=== PATIENT | female | born 1985 | race Caucasian/White ===

== ENCOUNTER 2017-10-23 19:45 | Emergency (ER) | payer BC, OTHER ==
[~2017-10-23] VITALS: Ht 167.6 cm; Wt 71.3 kg
[2017-10-23 19:49] VITALS: Ht 167.6 cm; Wt 71.3 kg
[2017-10-23] MEDS ORDERED: KETOROLAC 15 MG INJ IM STA (22:22)
--- NOTE | 2017-10-23 22:22 | ERD ---
ER Documentation Chief Complaint Chief Complaint back pain, dark colored urine HPI This 32 yr old female presents to ED for pelvic pain and dark colored urine, pt was seen and treated for chlamydia and vaginosis with 1000 mg of azithromycin and is taking Flagyl 500mg TID. pt reports constant generalized ABD pain described as squeezing . pain right upper quad to pelvic is the worse area. pt has appendicis pt has appointment Oct 28 or with [facility]. denies vaginal D/C. LMP 3 weeks ago. ROS All systems reviewed and are negative except as per history of present illness. Medications Home Meds Active Scripts Nitrofurantoin Monohyd Macrocr* (Macrobid*) 100 Mg Capsr, 100 MG PO BID for 7 Days, #14 CAP Prov:DHEERAJ,NORRIS 10/24/17 Ranitidine Hcl* (Zantac*) 150 Mg Tablet, 150 MG PO BID Y for EPIGASTRIC PAIN, # 30 TAB Prov:DHEERAJ,NORRIS 10/24/17 Discontinued Scripts Doxycycline Hyclate* (Doxycycline Hyclate*) 100 Mg Tablet.dr, 100 MG PO BID for 7 Days, TAB Prov:DHEERAJ,NORRIS 10/24/17 Allergies Allergies: Coded Allergies: No Known Allergy (Unverified , 10/23/17) PMhx/Soc Medical and Surgical Hx: pt denies Surgical Hx History of Surgery: No Anesthesia Reaction: No Hx Neurological Disorder: No Hx Respiratory Disorders: No Hx Cardiac Disorders: No Hx Psychiatric Problems: No 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 Abd: Soft, non tender, non distended. No CVA tenderness Skin: No petechiae or rashes Back: No midline or flank tenderness Ext: No cyanosis, or edema Neur: Awake and alert Psych: Normal Mood and Affect Results 24 hrs Laboratory Tests Test 11/30/17 22:30 Urine Color YELLOW Urine Clarity CLEAR Urine pH 5.0 Urine Specific [place] 1.024 Urine Ketones TRACEmg/dL Urine Nitrite NEGATIVEmg/dL Urine Bilirubin NEGATIVEmg/dL Urine Urobilinogen 1+mg/dL Urine Leukocyte Esterase TRACELeu/ul Urine Microscopic RBC 1/HPF Urine Microscopic WBC 1/HPF Urine Bacteria FEW/HPF Urine Mucus FEW/HPF Urine Hemoglobin 2+mg/dL Urine Glucose NEGATIVEmg/dL Urine Total Protein NEGATIVEmg/dl Current Medications Medications (Trade) Dose Ordered Sig/Carolyn Route PRN Reason Start Time Stop Time Status Last Admin Dose Admin Ranitidine HCl (Zantac) 150 mg ONCE ONCE PO 10/23/17 22:30 10/23/17 22:31 DC 10/23/17 22:49 Ketorolac Tromethamine (Toradol) 15 mg ONCE STAT IM 10/23/17 22:22 10/23/17 22:25 DC Procedures/MDM This 32-year-old female presents to emergency department for evaluation of pelvic pain and dark-colored urine, patient reports that she was treated by her primary care physician for chlamydia and vaginosis, she received 1000 mg of azithromycin one time dose and Flagyl 500 3 times daily which she currently is taking she reports abdominal pain and discomfort, denies back pain, nausea, vomiting, emergency room course today includes history and physical exam, teaching that Flagyl can cause the abdominal pain plan to treat patient with a H2 stephanie for symptomatic relief, urine will be sent for analysis and Chlamydia /gonorrhea, urinalysis: Negative for evidence of infection, trace leukocytosis , microscopic hematuria suggestive of an early UTI, plan to treat patient with Macrobid 1 tab p.o. twice daily 7 days. Patient is stable with no new complaints during ER course, clinically there is no current evidence to suggest meningitis, sepsis, acute abdomen, pyelonephritis, or any other emergent condition appearing to require further evaluation or hospitalization. I feel the patient is stable for discharge at this time. I have discussed results, examination findings, the treatment plan with the patient and family present prior to discharge. Indications for emergent reevaluation, side effects of medication were also discussed. All questions were answered. Patient verbalizes understanding and agrees with plan of care. Departure Diagnosis: Primary Impression: Abdominal pain Abdominal location: generalized Qualified Code: R10.84 - Generalized abdominal pain Additional Impression: Chlamydia Condition: Good Patient Instructions: Abdominal Pain, Chlamydia, Female Additional Instructions: Thank you for for coming to [facility] for your care today. Please ask your nurse or provider if you have questions about your care today and do not leave until all your questions have been answered. Please use any medications given as directed and follow-up with your doctor (or the doctor you were referred to) in the next 2-3 days. If you do not have a primary care doctor you may follow up at the [facility] (listed below). You may also use motrin and tylenol as needed for fever and/or pain unless instructed otherwise by your provider or nurse. Indications for more urgent follow-up have been discussed, but you may return to the Emergency Department at ANY time for any worrisome or worsening symptoms. If you have abdominal pain, please know that no test or exam you received is perfect and you should follow up within 8 hours for continued pain. If you had any imaging studies today, such as an X-Ray or CT Scan, these studies will be reviewed later by a radiologist. You will be called if there are important findings that were not identified today, so make sure the contact information you provided at registration is correct. If you received any narcotic pain control medicine today, such as Vicodin, Morphine or Dilaudid, your coordination and judgment may be affected for a number of hours. Please do not drive or operate heavy machinery, and you may want someone to assist you at home. If you were given a prescription for narcotic medication, be aware that it is very addictive- use sparingly and only if necessary. NORRIS ESQUEDA Oct 23, 2017 22:22
[2017-10-23] MEDS ORDERED: RANITIDINE 150 MG TAB PO ONE (22:30)
[2017-10-24] MEDS ORDERED: DOXY100T20 PO (02:20)
[2017-10-24] MEDS ORDERED: RANI150T9 PO (02:20)
[2017-10-24 02:31] LABS: ADD UMIC YES; UR ASCORBIC ACID NEGATIVE (NEGATIVE); UR BACTERIA FEW /HPF (NONE SEEN); UR BILIRUBIN (Dip) NEGATIVE (NEGATIVE); UR BLOOD (Dip) 2+ mg/dL (NEGATIVE); UR CLARITY CLEAR (CLEAR); UR COLOR YELLOW (YELLOW); UR GLUCOSE (Dip) NEGATIVE (NEGATIVE); UR KETONES (Dip) TRACE mg/dL (NEGATIVE); UR LEUKOCYTE ESTERASE (Dip) TRACE Leu/ul (NEGATIVE); UR MUCUS FEW /HPF (NONE SEEN); UR NITRITE (Dip) NEGATIVE (NEGATIVE); UR RBC 1 /HPF (0-5); UR SPECIFIC GRAVITY (Dip) 1.024 (1.003-1.030); UR TOTAL PROTEIN (Dip) NEGATIVE (NEGATIVE); UR UROBILINOGEN (Dip) 1+ mg/dL (NEGATIVE)
[2017-10-24] MEDS ORDERED: NITR-58 PO (02:56)
== END 2017-10-24 03:07 | disposition home or self-care (01) ==
LOC: FTE 19:45
DX: A74.9 Chlamydial infection, unspecified (principal); R10.84 Generalized abdominal pain; F17.210 Nicotine dependence, cigarettes, uncomplicated
CPT/HCPCS: 81001; 87591; J1885; Z7502; Z7610; 99283